=== PATIENT | female | born 1995 | race African-American/Black ===

== ENCOUNTER 2024-03-23 09:22 | Emergency (ER) | payer OTHER ==
[2024-03-23 09:46] VITALS: BP 118/74; PULSE 69; RESP 18; TEMP 98.5; BMI 29.7
[2024-03-23] MEDS: ALBUTEROL SO4 2.5/IPRATROPIUM 0.5 INH SOL 3 ML VIAL.NEB. NEB SCH (11:00)
[2024-03-23] MEDS ORDERED: ALBUTEROL SO4 2.5/IPRATROPIUM 0.5 INH SOL 3 ML VIAL.NEB. NEB ONE (11:25)
[2024-03-23] MEDS ORDERED: LORATADINE 10 MG TABLET ONE (11:26)
[2024-03-23] MEDS: OXYMETAZOLINE 0.05% NASAL SOLUTION 15 ML BOTTLE NS ONE (11:35)
[2024-03-23] MEDS: LORATADINE 10 MG TABLET PO ONE (11:36)
[2024-03-23] MEDS ORDERED: ALBUTEROL SO4 HFA INHALER IH ONE (11:38)
[2024-03-23] MEDS: ALBUTEROL SO4 HFA INHALER IH PRN (11:51)
== END 2024-03-23 13:25 | disposition home or self-care (01) ==
LOC: JER 09:22
PROC: 3E0F7GC Introduction of Other Therapeutic Substance into Respiratory Tract, Via Natural or Artificial Opening (ICD-10-PCS; principal; 2024-03-23)
DX: J45.901 Unspecified asthma with (acute) exacerbation (principal); R05.9 Cough, unspecified; R09.81 Nasal congestion
CPT/HCPCS: 94640; 99283-25